=== PATIENT | male | born 1980 | race Caucasian/White ===

== ENCOUNTER 2022-03-02 15:34 | Outpatient (REF) | payer BC, SELFPAY ==
[2022-03-02 15:47] VITALS: BP 134/93; PULSE 106; RESP 16; TEMP 37.3; O2SAT 97
[2022-03-02 15:48] VITALS: BMI 26.6
== END 2022-03-02 15:35 | disposition home or self-care (01) ==
LOC: HO.MS 15:34
PROVIDERS: Visit Provider Ophthalmology
PROC: (CPT 66821; principal; 2022-03-02 15:20)
DX: H26.491 Other secondary cataract, right eye (principal); Z96.1 Presence of intraocular lens; Z83.518 Family history of other specified eye disorder
CPT/HCPCS: 66821

== ENCOUNTER 2022-03-16 12:31 | Outpatient (REF) | payer BC, SELFPAY ==
[2022-03-16 12:37] VITALS: BP 112/66; PULSE 84; RESP 16; TEMP 36.7; O2SAT 99; BMI 26.6
== END 2022-03-16 12:32 | disposition home or self-care (01) ==
LOC: HO.MS 12:31
PROVIDERS: Visit Provider Ophthalmology
PROC: (CPT 66821; principal; 2022-03-16 14:30)
DX: H26.492 Other secondary cataract, left eye (principal); Z96.1 Presence of intraocular lens; Z82.1 Family history of blindness and visual loss
CPT/HCPCS: 66821